=== PATIENT | female | born 1980 | race Caucasian/White ===

== ENCOUNTER 2020-01-10 11:17 | Emergency (ER) | payer MEDICAID ==
--- NOTE | 2020-01-10 13:12 | XRAY Report ---
PROCEDURE: Chest 1 View X-Ray INDICATIONS: chest pain TECHNIQUE: One view of the chest was acquired. COMPARISON: None FINDINGS: Surgical changes and devices: None. Lungs and pleura: No pleural effusions or pneumothorax. Lungs are clear. Mediastinum: Mediastinal contours appear normal. Heart size is normal. Bones and chest wall: No suspicious bony lesions. Overlying soft tissues appear unremarkable. IMPRESSION: No acute cardiopulmonary disease process. Reviewed by: Ryanne Diaz MD, PhD on 01/10/2020 1:11 PM PDT Approved by: Ryanne Diaz MD, PhD on 01/10/2020 1:11 PM PDT Station ID: [id number]
--- NOTE | 2020-01-10 15:37 | ED Physician Documentation ---
History of Present Illness - Stated complaint Stated Complaint: BACK/RIB PX/SOA - Chief complaint Chief Complaint: Back Pain - History obtained from History obtained from: Patient - Additonal information Additional information: Patient comes emergency department complaining of sudden onset that of pain under her right breast wrapping around to her rib cage and ultimately radiating into her bilateral scapulae for about 1 week. Patient states that actually today, her pain is much better than it had been in the preceding 6 days, but that her primary doctor's office told her she should come here to get checked out. Patient states she is chronic mild nausea but this has not been worse recently. No fevers or chills. No cough. The patient denies any other symptoms that are new. She has no edema or pain in her lower extremities. No history of DVT. She is not a smoker and has not taken any long road trips recently. She is not or on hormonal control. No family history of DVT. Patient states she has been feeling more fatigued than usual for the last few weeks and that she gets very tired when she is exerting herself. She states even walking around the store made her tired this weekend. Patient does note that she has "autoimmune issues" and that she frequently gets tired from these as well, and does not know if this is the cause of her symptoms. No other complaints at this time. Review of Systems Ten Systems: 10 systems reviewed and negative Constitutional: reports: Fatigue. denies: Fever, Chills Eyes: reports: Reviewed and negative Ears: reports: Reviewed and negative Nose: reports: Reviewed and negative Throat: reports: Reviewed and negative Cardiac: reports: Chest pain / pressure. denies: Pedal edema, Calf pain Respiratory: reports: Dyspnea. denies: Cough GI: reports: Reviewed and negative : reports: Reviewed and negative Skin: reports: Reviewed and negative Musculoskeletal: reports: Reviewed and negative Neurologic: reports: Reviewed and negative Psychiatric: reports: Reviewed and negative Endocrine: reports: Reviewed and negative Immunocompromised: reports: Reviewed and negative PD PAST MEDICAL HISTORY - Past Medical History Other Past Medical History: Fibramyalgia. IBS - Allergies Allergies/Adverse Reactions: Allergies Allergy/AdvReac Type Severity Reaction Status Date / Time No Known Drug Allergies Allergy Verified 01/10/20 12:01 - Social History Does the pt smoke?: No Smoking Status: Never smoker Does the pt drink ETOH?: Yes Does the pt have substance abuse?: No Substance Use and Type: Marijuana - Immunizations Immunizations are current?: Yes PD ED PE NORMAL - Vitals Vital signs reviewed: Yes - General General: Alert and oriented X 3, No acute distress - HEENT HEENT: Atraumatic, PERRL, EOMI, Moist mucous membranes - Neck Neck: Supple, no meningeal sign - Cardiac Cardiac: RRR, No murmur, Strong equal pulses - Respiratory Respiratory: No respiratory distress, Clear bilaterally - Abdomen Abdomen: Soft, Non tender, Non distended - Derm Derm: Warm and dry - Extremities Extremities: No deformity - Neuro Neuro: Alert and oriented X 3 - Psych Psych: Normal mood, Normal affect Results - Vitals Vitals: Vital Signs - 24 hr 01/10/20 01/10/20 01/10/20 12:01 13:26 15:43 Temperature 36.9 C 37.1 C 36.5 C Heart Rate 76 65 62 Respiratory 18 16 18 Rate Blood Pressure 117/80 114/85 H 112/80 O2 Saturation 98 99 100 Oxygen O2 Source Room air - Labs Labs: Laboratory Tests 01/10/20 15:03 D-Dimer 252.8 - Rads (name of study) chest XR Radiology: Final report received, EMP read indepedently, See rad report (neg) PD MEDICAL DECISION MAKING - ED course Complexity details: reviewed results, re-evaluated patient, considered differential, d/w patient ED course: Patient's chest x-ray and d-dimer were negative. I discussed with the patient that her symptoms also could possibly be caused by gallstones. However, since her pain has significantly diminished and is only 1 out of 10 today, I do not feel that an ultrasound for the patient's gallbladder is indicated emergently or even urgently today in the emergency department. I given the patient the option to have an ultrasound done here or alternatively, her primary care physician's office in 3 days which she goes for her appointment. The patient has opted to talk to her primary doctor about this. The patient is very low risk for DVT and her d-dimer is negative. The pain does not sound typical of cardiac chest pain at all. I do not find any evidence of an emergent condition causing her pain. We have discussed home management of the symptoms, as well as the usual indications for return and the need for follow-up. Departure - Departure Disposition: 01 Home, Self Care Clinical Impression: Chest pain Qualifiers: Chest pain type: unspecified Qualified Code(s): R07.9 - Chest pain, unspecified Condition: Stable Instructions: ED Chest Pain Atypical Unkn Cause Comments: Your chest x-ray and d-dimer look good. There is no evidence at this time of an emergent cause of your pain. It is not clear exactly what has caused the pain, but it will most likely resolve on its own. You may talk to your doctor at your next appointment about having an ultrasound done to evaluate your gallbladder. At this point in time this is not emergently indicated, and you have opted to do this as an outpatient instead of in the emergency. If your pain becomes very bad again, particularly if you develop shortness of breath, nausea, or other concerning symptoms, please return to the emergency department. Discharge Date/Time: 01/10/20 15:58
[2020-01-10 15:44] VITALS: BP 112/80
== END 2020-01-10 15:58 | disposition home or self-care (01) ==
LOC: ED 11:17
DX: R07.9 Chest pain, unspecified (principal)
CPT/HCPCS: 36415; 71045; 85379; 99284

== ENCOUNTER 2020-01-25 11:43 | Outpatient (CLI) | payer MEDICAID ==
[2020-01-25 13:33] LABS: CALCIUM 8.7 mg/dL (8.5-10.3); CREATININE 0.6 mg/dL (0.4-1.0)
--- NOTE | 2020-01-25 15:31 | Ultrasound Report ---
PROCEDURE: Abdomen Complete INDICATIONS: RUQ PAIN TECHNIQUE: Real-time scanning was performed of the abdominal and retroperitoneal organs, with image documentatio n. COMPARISON: None. FINDINGS: Liver: Liver is mildly enlarged measuring 17.4 cm. There is mild appearance of diffuse increased ech ogenicity. Gallbladder: No stones are identified. Gallbladder wall thickness is within normal limits measuring 0 .6 mm. Phrygian cap is noted. Biliary ducts: Intrahepatic bile ducts demonstrate a questionable minimal borderline prominence. Ext rahepatic bile duct caliber measures 3 mm. Normal is 6-7 mm or less in diameter, or [address]-cholecystectomy. Pancreas: Visualized portions of the pancreas are sonographically normal. Spleen: Spleen is normal in size and homogeneous in echotexture. Kidneys: Kidneys are normal in size and echotexture. Right kidney measures 11 cm long; left kidney measures 11 cm long. No hydronephrosis or nephrolithiasis. No solid masses. Aorta: Visualized aorta is normal in caliber at less than 3 cm. Iliacs: Proximal common iliac arteries are normal in caliber at less than 2.5 cm. IVC: Intrahepatic inferior vena cava is patent. Miscellaneous: No free abdominal fluid. IMPRESSION: 1. Questionable borderline prominence of the intrahepatic ducts. No extrahepatic biliary dilation. 2. Gallbladder is unremarkable. Reviewed by: Millicent Wesley MD on 01/25/2020 3:30 PM PDT Approved by: Millicent Wesley MD on 01/25/2020 3:30 PM PDT Station ID: [id number]
== END 2020-01-25 11:44 | disposition home or self-care (01) ==
LOC: DI 11:43
PROVIDERS: ATTEND Family Medicine
DX: R10.11 Right upper quadrant pain (principal); E87.6 Hypokalemia
CPT/HCPCS: 36415; 76700; 80048

== ENCOUNTER 2020-02-23 18:17 | Outpatient (CLI) | payer MEDICAID ==
[2020-02-23 18:51] LABS: ALBUMIN 4.4 g/dL (3.2-5.5); ALKALINE PHOSPHATASE 54 IU/L (42-121); ALT ALANINE AMINOTRANSFERASE 13 IU/L (10-60); AMYLASE 56 U/L (28-100); AST ASPARTATE AMINOTRANSFERASE 13 IU/L (10-42); BILIRUBIN,TOTAL 0.5 mg/dL (0.2-1.0); LIPASE 27 U/L (22-51); TOTAL PROTEIN 7.2 g/dL (6.7-8.2)
[2020-02-23 19:05] LABS: BILIRUBIN,DIRECT < 0.1 mg/dL (0.1-0.5)
== END 2020-02-23 18:18 | disposition home or self-care (01) ==
LOC: LAB 18:17
PROVIDERS: ATTEND Registered Nurse
DX: R10.11 Right upper quadrant pain (principal)
CPT/HCPCS: 36415; 80076; 82150; 83690

== ENCOUNTER 2021-06-26 14:14 | Emergency (ER) | payer MEDICAID ==
[2021-06-26 14:43] LABS: BASOPHILS % (AUTO) 0.5 %; EOSINOPHILS % (AUTO) 0.3 %; HCT - HEMATOCRIT 38.6 % (37.0-47.0); HGB - HEMOGLOBIN 12.9 g/dL (12.0-16.0); LYMPHOCYTES # (AUTO) 1.6 10^3/uL (1.5-3.5); MEAN CORPUSCULAR HEMOGLOBIN 28.4 pg (27.0-31.0); MEAN CORPUSCULAR HGB CONC 33.4 g/dL (32.0-36.0); MEAN CORPUSCULAR VOLUME 84.8 fL (81.0-99.0); MEAN PLATELET VOLUME 9.8 fL (7.9-10.8); MONOCYTES # (AUTO) 0.7 10^3/uL (0.0-1.0); MONOCYTES % (AUTO) 7.6 %; NEUTROPHILS # (AUTO) 6.4 10^3/uL (1.5-6.6); NEUTROPHILS % (AUTO) 73.4 %; PLT - PLATELET COUNT 337 10^3/uL (130-450); RED BLOOD COUNT 4.55 10^6/uL (4.20-5.40); RED CELL DISTRIBUTION WIDTH 13.2 % (12.0-15.0); WHITE BLOOD COUNT 8.7 x10^3/uL (4.8-10.8)
[2021-06-26 14:55] LABS: ALBUMIN 4.9 g/dL (3.2-5.5); ALBUMIN/GLOBULIN RATIO 1.8 (1.0-2.2); BILIRUBIN,TOTAL 0.6 mg/dL (0.2-1.0); CALCIUM 8.9 mg/dL (8.5-10.3); CREATININE 0.6 mg/dL (0.4-1.0); POTASSIUM 3.4 mmol/L (3.5-5.0); TOTAL PROTEIN 7.7 g/dL (6.7-8.2)
[2021-06-26 15:04] LABS: BILIRUBIN,URINE NEGATIVE (NEGATIVE); GLUCOSE, URINE (UA) NEGATIVE (NEGATIVE); KETONES,URINE (UA) 15 mg/dL (NEGATIVE); LEUKOCYTE ESTERASE, URINE TRACE (NEGATIVE); NITRITE,URINE NEGATIVE (NEGATIVE); OCCULT BLOOD,URINE NEGATIVE (NEGATIVE); PROTEIN,URINE NEGATIVE (NEGATIVE); UROBILINOGEN,URINE 0.2 (NORMAL) E.U./dL (NORMAL)
[2021-06-26 15:07] LABS: CLARITY,URINE CLEAR (CLEAR); HCG UR QUAL NEGATIVE
[2021-06-26 15:19] LABS: BACTERIA,URINE Few /HPF (None Seen); MUCUS,URINE Few Strands; RBC,URINE 0-5 /HPF (0-5); SQUAMOUS EPITHELIAL CELL,UR MOD Squamous (<= Few); WBC,URINE 0-3 /HPF (0-5)
[2021-06-26] MEDS ORDERED: KETOROLAC 30 MG/ML VIAL IVP STA (15:34)
--- NOTE | 2021-06-26 15:38 | ED Physician Documentation ---
PD HPI ABD PAIN - Stated complaint Stated Complaint: LT SIDE PX - Chief complaint Chief Complaint: Abd Pain - History obtained from History obtained from: Patient - History of Present Illness Timing - onset: Today Timing - duration: Hours (12) Timing - details: Abrupt onset Pain level max: 9 Pain level now: 7 Quality: No: Aching, Pain Location: LUQ Radiation: No: Chest, , Lower back, Left flank, Left shoulder, Right flank, Right shoulder, Upper back Improved by: Other (nothing) Worsened by: Other (movement, palpation) Associated symptoms: No: Fever, Nausea, Vomiting, Hematemesis, Diarrhea, Constipation, Melena, Hematochezia, Dysuria, Hematuria, Chest pain, Dizzy - Additional information Additional information: Patient is a 40-year-old female who presents to the emergency department with left flank and left upper quadrant abdominal pain. Started this morning around 4 AM. She states that she has had "digestive issues" for many years with no cause found. She states she is unable to tolerate any pills by mouth. No fevers. No chills. Denies any possibility of . Has never had kidney stones before. Review of Systems Constitutional: denies: Fever, Chills Nose: denies: Rhinorrhea / runny nose, Congestion Throat: denies: Sore throat Cardiac: denies: Chest pain / pressure Respiratory: denies: Cough GI: denies: Nausea, Vomiting, Diarrhea, Hematemesis, Bloody / black stool Skin: denies: Rash Musculoskeletal: denies: Neck pain, Back pain Neurologic: denies: Headache PD PAST MEDICAL HISTORY - Past Medical History Past Medical History: No - Past Surgical History Past Surgical History: No - Present Medications Home Medications: Ambulatory Orders Medication Instructions Recorded Confirmed Hydrocodone/Acetaminophen [Lortab 15 ml PO Q6H PRN #473 ml 06/26/21 10 mg-300 mg/15 ml Elxr] - Allergies Allergies/Adverse Reactions: Allergies Allergy/AdvReac Type Severity Reaction Status Date / Time No Known Drug Allergies Allergy Verified 06/26/21 14:18 - Social History Does the pt smoke?: No Smoking Status: Never smoker Does the pt drink ETOH?: Yes Does the pt have substance abuse?: No - Immunizations Immunizations are current?: Yes PD ED PE NORMAL - Vitals Vital signs reviewed: Yes - General General: Alert and oriented X 3, No acute distress - HEENT HEENT: Moist mucous membranes - Neck Neck: Supple, no meningeal sign - Cardiac Cardiac: RRR, Strong equal pulses - Respiratory Respiratory: No respiratory distress, Clear bilaterally - Abdomen Abdomen: Soft, Non tender, Non distended - Back Back: No CVA TTP, No spinal TTP - Derm Derm: Warm and dry, No rash - Extremities Extremities: No edema - Neuro Neuro: Alert and oriented X 3 - Psych Psych: Normal mood, Normal affect Results - Vitals Vitals: Vital Signs - 24 hr 06/26/21 06/26/21 14:19 16:23 Temperature 36.8 C 36.6 C Heart Rate 68 69 Respiratory 18 16 Rate Blood Pressure 134/76 H 145/97 H O2 Saturation 98 100 Oxygen O2 Source Room air - Labs Labs: Laboratory Tests 06/26/21 06/26/21 06/26/21 14:30 14:38 14:38 WBC 8.7 RBC 4.55 Hgb 12.9 Hct 38.6 MCV 84.8 MCH 28.4 MCHC 33.4 RDW 13.2 Plt Count 337 MPV 9.8 Neut # (Auto) 6.4 Lymph # (Auto) 1.6 [place] # (Auto) 0.7 Eos # (Auto) 0.0 Baso # (Auto) 0.0 Absolute Nucleated RBC 0.00 Nucleated RBC % 0.0 Sodium 138 Potassium 3.4 L Chloride 102 Carbon Dioxide 26 Anion Gap 10.0 BUN 11 Creatinine 0.6 Estimated GFR (MDRD) 111 Glucose 104 H Calcium 8.9 Total Bilirubin 0.6 AST 18 ALT 14 Alkaline Phosphatase 49 Total Protein 7.7 Albumin 4.9 Globulin 2.8 Albumin/Globulin Ratio 1.8 Lipase 32 Urine Color YELLOW Urine Clarity CLEAR Urine pH 7.0 Ur Specific [place] 1.015 Urine Protein NEGATIVE Urine Glucose (UA) NEGATIVE Urine Ketones 15 H Urine Occult Blood NEGATIVE Urine Nitrite NEGATIVE Urine Bilirubin NEGATIVE Urine Urobilinogen 0.2 (NORMAL) Ur Leukocyte Esterase TRACE H Urine RBC 0-5 Urine WBC 0-3 Ur Squamous Epith Cells MOD Squamous H Urine Bacteria Few Urine Mucus Few Strands Ur Microscopic Review INDICATED Urine Culture Comments NOT INDICATED Urine HCG, Qual NEGATIVE - Rads (name of study) CT abdomen pelvis Radiology: Final report received, EMP read contemporaneously, See rad report PD MEDICAL DECISION MAKING - ED course Complexity details: reviewed results, re-evaluated patient, considered differential, d/w patient ED course: Patient is a 40-year-old female who presents to the emergency department with left upper quadrant abdominal pain. Unclear etiology. She states she is unable to tolerate oral medications. She states that she has had an endoscopy about 12 years ago, but has never had a colonoscopy. Possible that she has gastroparesis? Possible ulceration? Given Protonix and Pepcid here. We will prescribe pain medication for home and have her follow-up with her doctor for further care. Does have calcified uterine fibroids. Patient counseled regarding signs and symptoms for which I believe and urgent re-evaluation would be necessary. Patient with good understanding of and agreement to plan and is comfortable going home at this time This document was made in part using voice recognition software. While efforts are made to proofread this document, sound alike and grammatical errors may occur. IMPRESSION: No significant left kidney abnormality. There is no hydronephrosis or hydroureter. Uterine fibroids are seen, including an enhancing 5.2 cm uterine fibroid on the left. Incidental note is made of: Transitional lumbar anatomy, with a highly sacralized L5 level Mild dextroconvex scoliotic curvature Departure - Departure Disposition: Home, Self Care Clinical Impression: Abdominal pain Qualifiers: Abdominal location: left upper quadrant Qualified Code(s): R10.12 - Left upper quadrant pain Condition: Good Instructions: ED Abdominal Pain Female Non-Specific Abdominal Pain Follow-Up: Katerine Tavarez MD [Primary Care Provider] - Within 1 week Prescriptions: Hydrocodone/Acetaminophen [Lortab 10 mg-300 mg/15 ml Elxr] 15 ml PO Q6H PRN #473 ml PRN Reason: Abdominal Pain Comments: The cause of your symptoms is unclear today. Please follow-up with your doctor for further care. It is possible that you have gastroparesis, a gastric emptying study would help. An EGD/colonoscopy and/or pill endoscopy may help to determine the cause of your symptoms as well. Your doctor can refer you to a GI specialist. Please return if you worsen. Your prescriptions were sent to [facility] in [place]. I am prescribing a short course of narcotic pain medication for you. These are potentially dangerous and addictive medications that should be used carefully. These medications may constipate you. Take an yric-qhx-zsfeydx stool softener (docusate) twice daily with plenty of water while taking these medications. If you go 24 hours without a bowel movement, take ssra-vpb-ypftjcs miralax, per package instructions. Do not drink or drive while taking these medications. If you received narcotic or sedating medications while in the emergency department, do not drive for 24 hours. Store this medication in a safe, secure place and out of reach of children. It is a violation of federal law to give or sell this medication to another person or to use in a manner other than prescribed. The ED will not refill narcotic prescriptions, including prescriptions lost or stolen. To dispose of unwanted medications: 1. [facility] [address] in [place] has a medication drop box. They accept prescription medications (in pill form) Friday through Friday 9:00 a.m. to 5:00 p.m. 2. [facility] [employer] accepts prescription medications (in pill form only) for disposal year round. Call for more information. 3. Contact the [facility] for the next [facility] sponsored prescription drug collection event. , [phone], or [phone];
[2021-06-26] MEDS ORDERED: IOVERSOL 320 100 ML VIAL IVP ONE ×2 (16:08→20:29)
[2021-06-26] MEDS: MORPHINE 2 MG/ML CARPUJECT IVP STA ×2 (16:43→16:48)
--- NOTE | 2021-06-26 16:52 | CT Report ---
PROCEDURE: Abdomen/Pelvis W INDICATIONS: L flank pain CONTRAST: IV CONTRAST: Optiray 320 ml: 100 PO CONTRAST: *NO PO CONTRAST TECHNIQUE: After the administration of IV contrast, 5 mm thick sections acquired from the diaphragms to the symp hysis. 5 mm thick coronal and sagittal reformats were acquired. For radiation dose reduction, the f ollowing was used: automated exposure control, adjustment of mA and/or kV according to patient size. COMPARISON: Correlation is made with prior abdominal ultrasound, 01/25/2020 FINDINGS: Image quality: Excellent. ABDOMEN: Lung bases: Lung bases are clear. Heart size is normal. Solid organs: The liver demonstrates normal size. No liver lesions are detected. The spleen demonst rates normal size and demonstrates no focal lesions. An accessory splenule is incidentally noted consuelo ng the hilum of the primary spleen. Gallbladder wall does not appear thickened. Biliary system i s non dilated. Pancreas enhances normally. No adrenal nodules. Kidneys demonstrate normal size and enhancement, without hydronephrosis. Peritoneum and bowel: Bowel loops demonstrate normal wall thickness and caliber. No free fluid or a ir. Nodes and vessels: No retroperitoneal or mesenteric adenopathy by size criteria. Aorta and inferior vena cava are normal in size. Miscellaneous: No ventral hernias. PELVIS: Genitourinary: Bladder wall thickness is normal. There is enhancing left uterine fibroid seen that measures 5.2 cm. A 4.9 cm poorly enhancing fibroid is seen on the right posteriorly. Miscellaneous: No inguinal hernias or adenopathy. Bones: No suspicious bony lesions. No vertebral body compression fractures. Mild dextroconvex scol iotic curvature is seen. This patient has transitional anatomy. For the purposes of this examination, the level with the last pair of ribs is considered to be T12. By this imaging scheme, the L5 level i s transitional and is highly sacralized IMPRESSION: No significant left kidney abnormality. There is no hydronephrosis or hydroureter. Uterine fibroids are seen, including an enhancing 5.2 cm uterine fibroid on the left. Incidental note is made of: Transitional lumbar anatomy, with a highly sacralized L5 level Mild dextroconvex scoliotic curvature Reviewed by: Britton Hicks MD on 06/26/2021 3:51 PM LUZ Approved by: Britton Hicks MD on 06/26/2021 3:51 PM LUZ Station ID: [id number]
[2021-06-26] MEDS ORDERED: PANTOPRAZOLE 40 MG VIAL IVP STA (17:11)
[2021-06-26] MEDS: FAMOTIDINE 20 MG TABLET PO STA ×2 (17:19→17:24)
[2021-06-26 17:31] VITALS: BP 129/91
== END 2021-06-26 17:30 | disposition home or self-care (01) ==
LOC: ED 14:14
DX: R10.12 Left upper quadrant pain (principal)
CPT/HCPCS: 36415; 74177; 80053; 81001; 81025; 83690; 85025; 96374; 96375; 99284; A9270; Q9967; 81003; 87086

== ENCOUNTER 2024-01-02 13:32 | Outpatient (CLI) | payer MEDICAID ==
--- NOTE | 2024-01-02 16:06 | Ultrasound Report ---
LIMITED ULTRASOUND OF LEFT BREAST: 01/02/2024 CLINICAL: Focal nodular dense tissue. Comparison is made to exams dated: 03/15/2016 mammogram - [facility] and 01/02/2024 mammogra m - [facility]. Color flow ultrasound of the left breast 11-1 o'clock region was performed. House scale images of th e real-time examination were reviewed. No significant abnormalities were seen sonographically in the left breast. IMPRESSION: NEGATIVE There is no sonographic evidence of malignancy. There is no abnormality seen in the left breast to correspond with the palpable abnormality in the brewer perior aspect, however, clinical followup is recommended. A 1 year screening mammogram is recommended. This exam was interpreted at Station ID: [id number]. Electronically Signed By: Yovani chavarria/gavino:01/02/2024 15:45:48 ACR BI-RADS Category 1: Negative BI-RADS CATEGORY: (1) - 1 RECOMMENDATION: (ANNUAL) - Recommend routine annual screening mammography. [id number] 1 year screening LATERALITY: (B)
--- NOTE | 2024-01-02 16:06 | Ultrasound Report ---
LIMITED ULTRASOUND OF RIGHT BREAST: 01/02/2024 CLINICAL: Focal nodular dense tissue. Comparison is made to exams dated: 03/15/2016 mammogram - [facility] and 01/02/2024 mammogra m - [facility]. Color flow ultrasound of the right breast 11-1 o'clock region was performed. House scale images of th e real-time examination were reviewed. No significant abnormalities were seen sonographically in the right breast. IMPRESSION: NEGATIVE There is no sonographic evidence of malignancy. There is no abnormality seen in the right breast to correspond with the palpable abnormality in the s uperior aspect, however, clinical followup is recommended. A 1 year screening mammogram is recommended. This exam was interpreted at Station ID: [id number]. Electronically Signed By: Yovani chavarria/gavino:01/02/2024 15:45:14 letter sent: No_Letter ACR BI-RADS Category 1: Negative BI-RADS CATEGORY: (1) - 1 RECOMMENDATION: (ANNUAL) - Recommend routine annual screening mammography. [id number] 1 year screening LATERALITY: (B)
--- NOTE | 2024-01-02 16:06 | Mammography Report ---
BILATERAL DIGITAL DIAGNOSTIC MAMMOGRAM 3D/2D WITH EXAGGERATED CC: 01/02/2024 CLINICAL: History of Nodular breasts per physician. Comparison is made to exam dated: 03/15/2016 mammogram - [facility]. The breasts are extremely dense, which lowers the sensitivity of mammography (category d />75% glandu lar tissue). No significant masses, calcifications, or other findings are seen in either breast. IMPRESSION: INCOMPLETE: NEED ADDITIONAL IMAGING EVALUATION There are no abnormalities seen in either breast to correspond with the palpable abnormalities in the superior aspect reported by the patient's physician. Targeted ultrasound is recommended for furthe r evaluation and will be performed immediately following this exam. Based on the Tyrer Cuzick model (a risk assessment model) the patient's lifetime risk is 19.8% and he r 10 year risk is 3.0%. According to the ACR, ACS, and NCCN guidelines, an annual breast MRI exam consuelo ng with mammogram is recommended if the patient's lifetime risk is 20% or greater. This exam was interpreted at Station ID: [id number]. NOTE: For mammograms, a report in lay terms will be sent to the patient. Approximately 15% of breast malignancies will not be visualized mammographically. In the management of a palpable breast mass, a negative mammogram must not discourage biopsy of a clinically suspicious lesion. Electronically Signed By: Yovani Paula M.D. ar/:01/02/2024 15:44:30 ACR BI-RADS Category 0: Incomplete: Need Additional Imaging Evaluation PARENCHYMAL PATTERN: (VD) - The breast(s) demonstrate(s) extremely dense parenchyma, limiting the sen sitivity of mammography. BI-RADS CATEGORY: (0) - 0 Ultrasound [id number] Immediate follow-up LATERALITY: (B)
== END 2024-01-02 13:33 | disposition home or self-care (01) ==
LOC: DI 13:32
PROVIDERS: ATTEND Family Medicine
DX: N63.11 Unspecified lump in the right breast, upper outer quadrant (principal); N63.22 Unspecified lump in the left breast, upper inner quadrant; N63.25 Unspecified lump in the left breast, overlapping quadrants; N63.15 Unspecified lump in the right breast, overlapping quadrants

== ENCOUNTER 2024-01-02 14:38 | Outpatient (CLI) | payer MEDICAID | END 2024-01-02 14:39 | disposition home or self-care (01) | LOC: LAB 14:38 | PROVIDERS: ATTEND Family Medicine | DX: D64.9 Anemia, unspecified (principal) | CPT/HCPCS: 36415; 82728; 83540; 84466 ==